=== PATIENT | female | born 1995 | race Two or more races ===

== ENCOUNTER 2019-04-02 18:55 | Emergency (ER) | payer OTHER ==
[~2019-04-02] VITALS: Ht 167.6 cm; Wt 63.0 kg
[2019-04-02] MEDS ORDERED: AZESCO TABLET1 EACH (19:07)
== END 2019-04-02 21:57 | disposition home or self-care (01) ==
LOC: ER 18:55
DX: N83.291 Other ovarian cyst, right side (principal); N83.11 Corpus luteum cyst of right ovary; N93.8 Other specified abnormal uterine and vaginal bleeding

== ENCOUNTER 2019-11-29 04:15 | Inpatient (IN) | payer OTHER ==
[~2019-11-29] VITALS: Ht 167.6 cm; Wt 5.0 kg
[~2019-11-29 04:15] MED LIST: AZESCO TABLET1 EACH
== END 2019-12-02 16:00 | disposition home or self-care (01) | DRG 807 ==
LOC: LDR 04:15 → OB/GYN 11-30 16:07
PROVIDERS: ADMIT Obstetrics & Gynecology; ATTEND Obstetrics & Gynecology
PROC: 3E0P7VZ Introduction of Hormone into Female Reproductive, Via Natural or Artificial Opening (ICD-10-PCS; 2019-11-29)
PROC: 3E033VJ Introduction of Other Hormone into Peripheral Vein, Percutaneous Approach (ICD-10-PCS; 2019-11-29)
PROC: 10907ZC Drainage of Amniotic Fluid, Therapeutic from Products of Conception, Via Natural or Artificial Opening (ICD-10-PCS; 2019-11-29)
PROC: 4A1HXCZ Monitoring of Products of Conception, Cardiac Rate, External Approach (ICD-10-PCS; 2019-11-29)
PROC: 10E0XZZ Delivery of Products of Conception, External Approach (ICD-10-PCS; principal; 2019-11-30)
PROC: 0HQ9XZZ Repair Perineum Skin, External Approach (ICD-10-PCS; 2019-11-30)
DX: O70.0 First degree perineal laceration during delivery (principal); Z37.0 Single live birth; O48.0 Post-term pregnancy; Z20.828 Contact with and (suspected) exposure to other viral communicable diseases; Z3A.40 40 weeks gestation of pregnancy